=== PATIENT | male | born 1990 | race Caucasian/White ===

== ENCOUNTER 2021-12-29 06:49 | Day surgery (SDC) | payer BC ==
[~2021-12-29 06:49] MED LIST: Albuterol 0.083% 2.5 MG/3 ML Neb Soln NEB PRN; HYDROmorphone 1 MG/ML Syringe IVPUSH PRN; Lactated Ringers 1,000 ML IV SCH; Metoclopramide 10 MG/2 ML SDV IVPUSH PRN; Morphine 4 MG/ML VIAL IVPUSH PRN; Naloxone 0.4 MG/ML SDV IVPUSH PRN; Ondansetron 4 MG/2 ML SDV IVPUSH PRN; ceFAZolin 2 GM in Premix Bag 1 BAG IV ONE; fentaNYL 100 MCG/2 ML SDV IVPUSH PRN
[2021-12-29] MEDS ORDERED: Ropivacaine 0.5% 5 MG/ML 30 ML SDV ONE (07:11)
[2021-12-29] MEDS ORDERED: Rocuronium Bromide 50 MG/5 ML Syringe ONE (07:12)
[2021-12-29] MEDS ORDERED: Ondansetron 4 MG/2 ML SDV ONE (07:12)
[2021-12-29] MEDS ORDERED: Ketorolac 30 MG/ML SDV ONE (07:12)
[2021-12-29] MEDS ORDERED: Glycopyrrolate 0.2 MG/ML SDV ONE (07:13)
[2021-12-29] MEDS ORDERED: Dexamethasone 4 MG/ML 5 ML MDV ONE (07:13)
[2021-12-29] MEDS ORDERED: Sugammadex Sodium 200 MG/2 ML VIAL ONE (07:13)
[2021-12-29] MEDS ORDERED: Bupivacaine 0.5% 30 ML SDV ONE (07:16)
[2021-12-29] MEDS ORDERED: ceFAZolin 1 GM Vial ONE ×2 (07:16→08:03)
[2021-12-29] MEDS ORDERED: Octyl 2-Cyanoacrylate 1 Tube ONE (07:17)
[2021-12-29] MEDS ORDERED: propofoL 100 ML ONE (07:17)
[2021-12-29] MEDS ORDERED: Midazolam 1 MG/ML 2 ML SDV ONE (07:35)
[2021-12-29] MEDS ORDERED: fentaNYL 250 MCG/5 ML SDV ONE (07:35)
[2021-12-29] MEDS ORDERED: Acetaminophen 1,000 MG in Premix Bag 1 BAG IV ONE (10:46)
[2021-12-29] MEDS ORDERED: Acetaminophen/HYDROcodone 325-5 MG Tab PO PRN (10:47)
[2021-12-29] MEDS ORDERED: Ondansetron 4 MG/2 ML SDV IVPUSH PRN (10:47)
[2021-12-29] MEDS ORDERED: Morphine 4 MG/ML VIAL IVPUSH PRN (10:47)
[2021-12-29] MEDS ORDERED: Lactated Ringers 1,000 ML IV SCH (11:00)
[2021-12-29] MEDS ORDERED: Acetaminophen/oxyCODONE 325-5 MG Tab PO PRN (12:19)
== END 2021-12-29 13:55 | disposition home or self-care (01) ==
LOC: MW.SDS 06:49
PROVIDERS: ATTEND Surgery
DX: K40.20 Bilateral inguinal hernia, without obstruction or gangrene, not specified as recurrent (principal); Z88.0 Allergy status to penicillin; Z82.49 Family history of ischemic heart disease and other diseases of the circulatory system; Z78.9 Other specified health status; Z79.899 Other long term (current) drug therapy
CPT/HCPCS: 49505; A9270; J0131; J0690; J1100; J1885; J2250; J2704; J2795; J3010; J3490; J7120; 00830; 64488; C1781; J2405